=== PATIENT | male | born 1995 | race Two or more races ===

== ENCOUNTER 2020-01-19 12:20 | Emergency (ER) | payer MEDICAID ==
[~2020-01-19] VITALS: Ht 175.3 cm; Wt 61.2 kg
[~2020-01-19 12:20] MED LIST: IBUPROFEN600 MG ORAL
[2020-01-19 12:35] VITALS: BP 121/74
--- NOTE | 2020-01-19 12:37 | NUR ---
ED Nurse Note: A/OX4. REPORTS OF HAVING SMALL LACERATION ON LEFT THUMB FROM WORK ON WEDNESDAY. NO EXTERNAL ACTIVE BLEEDING NOTED. DENIES ITCHING, BURNING, SWELLING AT THE SITE. NAD NOTED.
--- NOTE | 2020-01-19 13:09 | Emergency Room Report ---
History of Present Illness General Chief Complaint: Wound Recheck/Suture Removal Source: Patient Present Illness HPI 24-year-old male presents to the emergency department complaining of 4 out of 10 in severity pain and tenderness to a laceration on his left thumb which he sustained 4 days ago. Patient reports he was washing dishes and he accidentally cut his thumb with a knife. He denies intent. He reports he is right-hand dominant. He denies bleeding at this time and denies taking blood thinning medications. Patient denies history of immune compromise. He reports he uses his hands often and on occasion it will break open and begin bleeding temporarily. Patient states he is also up-to-date with his tetanus vaccination. He is requesting second opinion on whether or not he needs some stitches. Denies paresthesias or loss of gross motor movements of the affected extremity. Allergies: Coded Allergies: No Known Allergies (Unverified , 04/05/15) Patient History Past Medical History: see triage record Past Surgical History: none Pertinent Family History: none Immunizations: UTD Reviewed Nursing Documentation: PMH: Agreed; PSxH: Agreed Nursing Documentation-PMH Past Medical History: No Stated History Review of Systems All Other Systems: negative except mentioned in HPI Physical Exam Vital Signs Date Time Temp Pulse Resp B/P (MAP) Pulse Ox O2 Delivery O2 Flow Rate FiO2 01/19/20 12:29 98.4 89 18 121/74 (90) 97 Room Air Sp02 EP Interpretation: reviewed, normal General Appearance: no apparent distress, alert, GCS 15, non-toxic Head: normocephalic, atraumatic Eyes: bilateral eye normal inspection, bilateral eye PERRL ENT: hearing grossly normal, normal voice Neck: full range of motion Respiratory: lungs clear, normal breath sounds, speaking full sentences Cardiovascular #1: regular rate, rhythm, normal capillary refill Musculoskeletal: normal range of motion, gait/station normal, non-tender Neurologic: alert, motor strength/tone normal, oriented x3, sensory intact, responsive, speech normal, grossly normal, normal inspection, no focal defects Psychiatric: judgement/insight normal Skin: laceration - 1.5cm laceration to the distal lateral aspect of the left thumb. mildly macerated appearance, evidence of healing by secondary intent, slight gap between the edges of the dermis. no bleeding at this time. some surrounding erythema noted. Lymphatic: no adenopathy Medical Decision Making PA Attestation Dr. Piper is my supervising Physician whom patient management has been discussed with. Diagnostic Impression: Primary Impression: Laceration of left thumb with delay in treatment Qualified Codes: S61.012A - Laceration without foreign body of left thumb without damage to nail, initial encounter ER Course 24-year-old male presents to the emergency department complaining of 4 out of 10 in severity pain and tenderness to a laceration on his left thumb which he sustained 4 days ago. Patient reports he was washing dishes and he accidentally cut his thumb with a knife. He denies intent. He reports he is right-hand dominant. He denies bleeding at this time and denies taking blood thinning medications. Patient denies history of immune compromise. He reports he uses his hands often and on occasion it will break open and begin bleeding temporarily. Patient states he is also up-to-date with his tetanus vaccination. He is requesting second opinion on whether or not he needs some stitches. Denies paresthesias or loss of gross motor movements of the affected extremity. Ddx considered but are not limited to laceration, tendon injury, cellulitis, amputation Vital signs: are WNL, pt. is afebrile H&PE are most consistent with: Left thumb linear laceration approx 1.5 cm in length ORDERS: none required at this time, the diagnosis is clinical ED INTERVENTIONS: - - The wound was irrigated with normal saline and examined. -- Due to Delay in presentation, d/w pt. wound will have to heal by secondary intent and any revisions would be made by hand specialist or plastics once fully healed. -Bacitracin and sterile dressing is applied. - Finger Splint applied to the Left Thumb by injection mold tooling technician. Pt. remains neurovascularly intact. DISCHARGE: At this time pt. is stable for d/c to home. Will provide printed patient care instructions, and any necessary prescriptions. Care plan and follow up instructions have been discussed with the patient prior to discharge. Last Vital Signs Date Time Temp Pulse Resp B/P (MAP) Pulse Ox O2 Delivery O2 Flow Rate FiO2 01/19/20 12:35 98.4 89 18 121/74 97 Room Air Disposition: HOME, SELF-CARE Condition: Stable Scripts Bacitracin (Bacitracin) 28.4 Gm Oint...g. 1 APPLIC TOPIC THREE TIMES A DAY, #28.4 GM Prov: Herlinda Ludwig 01/19/20 Cephalexin* (KEFLEX*) 500 Mg Capsule 500 MG ORAL EVERY 12 HOURS, #14 CAP 0 Refills Prov: Herlinda Ludwig 01/19/20 Referrals: Jose Sharma Comp. [facility] Patient Instructions: Nonsutured Laceration Care Additional Instructions: Take medications as directed. Keep laceration clean and dry Follow up with a Primary Care Provider in 3-5 days, even if your symptoms have resolved. --Please review list of primary care clinics, if you do not already have a primary care provider Return sooner to ED if new symptoms occur, or current symptoms become worse. - Please note that this Emergency Department Report was dictated using [employer] drier technology software, occasionally this can lead to erroneous entry secondary to interpretation by the dictation equipment. Herlinda Ludwig Jan 19, 2020 13:09
[2020-01-19] MEDS ORDERED: CEPHALEXIN500 MG ORAL (13:16)
[2020-01-19] MEDS ORDERED: BACITRACIN15 GM TOPIC (13:16)
--- NOTE | 2020-01-19 13:27 | NUR ---
ED Nurse Note: GIOVANNI Edmonds applied finger splint to left thumb. Educated patient to keep the wound area clean, dry. D/C instruction and prescription given to patient. Patient verblized understanding of it. Patient ambulated out with steady gait.
== END 2020-01-19 13:28 | disposition home or self-care (01) ==
LOC: EMR 13:20
DX: S61.012A Laceration without foreign body of left thumb without damage to nail, initial encounter (principal); W26.0XXA Contact with knife, initial encounter; Y93.G1 Activity, food preparation and clean up; Y92.9 Unspecified place or not applicable
CPT/HCPCS: 29130; Z7502; 99282